=== PATIENT | female | born 1995 | race Caucasian/White ===

== ENCOUNTER 2018-06-01 06:03 | Emergency (ER) | payer BC ==
[~2018-06-01] VITALS: Ht 149.9 cm; Wt 72.6 kg
[2018-06-01 06:17] LABS: URINE BILIRUBIN NEGATIVE (Negative); URINE BLOOD TRACE (Negative); URINE CLARITY CLEAR; URINE COLOR YELLOW; URINE GLUCOSE-RANDOM* NEGATIVE (Negative); URINE KETONES NEGATIVE (Negative); URINE LEUKOCYTES-REFLEX NEGATIVE (Negative); URINE NITRITE-REFLEX NEGATIVE (Negative); URINE PROTEIN (DIPSTICK) NEGATIVE (Negative); URINE SPECIFIC GRAVITY >= 1.030 (1.005-1.035); URINE UROBILINOGEN 0.2 E.U./dl (0.2-1.0)
[2018-06-01 06:52] LABS: ABSOLUTE NEUTROPHILS 4.4 thou/uL (1.4-8.2); BASOPHILS 0.9 % (0.0-2.0); EOSINOPHILS 1.2 % (0.0-3.0); HEMATOCRIT 39.9 % (37.0-47.0); HEMOGLOBIN 13.7 gm/dL (12.0-15.0); LYMPHOCYTES 29.7 % (24.0-44.0); MCH 28.4 pg (26.0-34.0); MCHC 34.4 g/dL (28.0-37.0); MCV 82.6 fL (80.0-100.0); MONOCYTES 7.6 % (1.0-8.0); PLATELET COUNT 321 thou/uL (150-400); POLYS 60.6 % (36.0-66.0); RBC 4.84 mil/uL (4.20-5.00); RDW 13.3 % (10.5-14.5); WBC 7.2 thou/uL (4.0-11.0)
[2018-06-01 07:03] LABS: ANION GAP 11 mmol/L (7-16); BUN 14 mg/dL (7-18); CALCIUM 8.8 mg/dL (8.5-10.1); CHLORIDE 104 mmol/L (98-107); CO2 22 mmol/L (21-32); CREATININE 0.8 mg/dL (0.6-1.0); GLUCOSE 113 mg/dL (74-106); POTASSIUM 3.7 mmol/L (3.5-5.1); SODIUM 137 mmol/L (136-145)
[2018-06-01 07:09] LABS: ALBUMIN 3.5 g/dL (3.4-5.0); DIRECT BILIRUBIN < 0.1 mg/dL (<0.1-0.3); LIPASE 98 U/L (73-393); SGOT 14 U/L (15-37); SGPT 18 U/L (30-65); TOTAL BILIRUBIN 0.3 mg/dL (<0.1-1.0); TOTAL PROTEIN 7.9 g/dL (6.4-8.2)
[2018-06-01] MEDS ORDERED: FLOMAX0.4 MG PO ×2 (08:33→08:51)
[2018-06-01] MEDS ORDERED: NORCO 5-325 TA1 EACH PO (08:37)
[2018-06-01] MEDS ORDERED: TORADOL 10 MG T10 MG PO (08:37)
[2018-06-01 09:07] VITALS: BP 127/77
== END 2018-06-01 09:11 | disposition home or self-care (01) ==
LOC: ER 06:03
PROVIDERS: Student in an Organized Health Care Education/Training Program
DX: N20.0 Calculus of kidney (principal)